=== PATIENT | female | born 1965 | race Caucasian/White ===

== ENCOUNTER 2017-03-08 13:35 | Emergency (ER) | payer MEDICAID ==
[~2017-03-08] VITALS: Ht 162.6 cm; Wt 85.0 kg
[~2017-03-08 13:35] MED LIST: ACET-2178 PO; ALBU18HF2 IH; ALBUL; HYDR25TA PO; LISI-186 PO; METF500T4 PO; PROAIR
[2017-03-08] MEDS ORDERED: IPRATROPIUM BROMIDE (0.02%) 0.5MG/2.5ML NEB HHN STA (14:30)
[2017-03-08] MEDS ORDERED: ALBUTEROL (0.083%) 2.5MG/3ML NEB HHN STA (14:30)
[2017-03-08] MEDS ORDERED: PREDNISONE 20MG TABLET PO STA (14:30)
[2017-03-08] MEDS ORDERED: METHYLPREDNISOLONE SOD SUCC 125 MG/2 ML VIAL IV STA (14:39)
[2017-03-08 17:23] VITALS: BP 110/61
== END 2017-03-08 17:40 | disposition home or self-care (01) ==
LOC: ER 14:52
DX: J45.901 Unspecified asthma with (acute) exacerbation (principal); I25.10 Atherosclerotic heart disease of native coronary artery without angina pectoris; I10 Essential (primary) hypertension; E11.9 Type 2 diabetes mellitus without complications; I25.2 Old myocardial infarction
CPT/HCPCS: 71010; 94644; 96374; 99285; J2930; J7611; Z7610; 94640

== ENCOUNTER 2024-05-27 09:48 | Emergency (ER) | payer MEDICAID ==
[~2024-05-27] VITALS: Ht 162.6 cm; Wt 80.0 kg
[~2024-05-27 09:48] MED LIST changes: -ACET-2178 PO; +ALBU2SYR23; -ALBUL; +METF-414 PO; -METF500T4 PO; +TOPUD PO
[2024-05-27 10:25] LABS: BASOPHILS % 1.3 % (0.0-2.0); EOSINOPHILS % 8.6 % (0.0-5.0); HEMATOCRIT. 41.9 % (36.0-48.0); HEMOGLOBIN. 13.9 g/dL (12.0-16.0); LYMPHOCYTES % 20.7 % (20.0-50.0); MEAN CORPUSCULAR HEMOGLOBIN 29.4 pg (28.0-32.0); MEAN CORPUSCULAR HGB CONC 33.3 g/dL (31.0-37.0); MEAN CORPUSCULAR VOLUME 88.2 fL (81.0-99.0); MEAN PLATELET VOLUME 8.5 fl (7.4-10.4); NEUTROPHILS % 60.4 % (40.0-76.0); PLATELET 318 x1000/uL (130-400); RED BLOOD CELL COUNT 4.75 mill/uL (4.2-5.4); RED CELL DISTRIBUTION WIDTH 15.4 % (11.6-14.6); WHITE BLOOD COUNT 8.8 x1000/uL (4.5-11.0)
[2024-05-27 10:29] LABS: CHLORIDE 105 mEq/L (98-107); POTASSIUM 3.9 mEq/L (3.5-5.1); SODIUM 139 mEq/L (136-145)
[2024-05-27 10:30] LABS: CARBON DIOXIDE 26 mEq/L (21-32)
[2024-05-27 10:31] LABS: CALCIUM 9.6 mg/dL (8.7-10.4)
[2024-05-27 10:35] LABS: CREATININE 0.9 mg/dL (0.6-1.0)
[2024-05-27 10:36] LABS: GLUCOSE 265 mg/dL (70-105); TROPONIN I HIGH SENSITIVITY 5 ng/L (3.0-34); UREA NITROGEN BLOOD 11 mg/dL (9-23)
[2024-05-27 11:19] VITALS: PULSE 77; RESP 20; O2SAT 95
[2024-05-27] MEDS: IPRATROPIUM BROMIDE (0.02%) 0.5MG/2.5ML NEB HHN ONE (11:19)
[2024-05-27] MEDS: ALBUTEROL (0.5%) 2.5MG/0.5ML NEB HHN ONE (11:19)
[2024-05-27] MEDS: METHYLPREDNISOLONE SOD SUCC 125MG/2ML (ACT-O-VIAL) IM ONE (11:49)
[2024-05-27] MEDS ORDERED: P20 MT (12:33)
[2024-05-27] MEDS ORDERED: ALBU05 NEB (12:33)
[2024-05-27 12:46] VITALS: BP 140/84; PULSE 75; RESP 20; TEMP 36.66960; O2SAT 95
== END 2024-05-27 12:53 | disposition home or self-care (01) ==
LOC: ER 09:48
DX: J45.901 Unspecified asthma with (acute) exacerbation (principal); F12.10 Cannabis abuse, uncomplicated; I25.2 Old myocardial infarction; I10 Essential (primary) hypertension; E11.9 Type 2 diabetes mellitus without complications; Z79.899 Other long term (current) drug therapy; Z98.890 Other specified postprocedural states
CPT/HCPCS: 80048; 83880; 85025; 84484; 36415; 71045; 93005; 94644; 96372; 99285; J2919; Z7610; 94640

== ENCOUNTER 2024-07-22 10:00 | Emergency (ER) | payer MEDICAID ==
[~2024-07-22] VITALS: Ht 160 cm; Wt 80.7 kg
[~2024-07-22 10:00] MED LIST changes: +ALBU05 NEB; +P20 MT
[2024-07-22 10:06] VITALS: O2SAT 99
[2024-07-22 10:15] VITALS: BP 180/138; TEMP 98; O2SAT 97
[2024-07-22 10:28] VITALS: PULSE 88; RESP 18
[2024-07-22] MEDS: ALBUTEROL (0.083%) 2.5MG/3ML NEB HHN STA (10:28)
[2024-07-22] MEDS: IPRATROPIUM BROMIDE (0.02%) 0.5MG/2.5ML NEB HHN STA (10:28)
[2024-07-22] MEDS ORDERED: IPRATROPIUM/ALBUTEROL 0.5-3(2.5)MG/3ML NEB ONE (10:54)
[2024-07-22 10:55] VITALS: PULSE 78; RESP 18
[2024-07-22] MEDS: PREDNISONE 20MG TABLET PO STA (10:57)
[2024-07-22 10:58] VITALS: PULSE 78; RESP 18
[2024-07-22 11:27] VITALS: PULSE 80; RESP 20
[2024-07-22] MEDS: IPRATROPIUM/ALBUTEROL 0.5-3(2.5)MG/3ML NEB HHN ONE (11:27)
[2024-07-22 12:06] LABS: CHLORIDE 106 mEq/L (98-107); POTASSIUM 3.8 mEq/L (3.5-5.1); SODIUM 140 mEq/L (136-145)
[2024-07-22 12:07] LABS: CARBON DIOXIDE 27 mEq/L (21-32)
[2024-07-22 12:10] LABS: BASOPHILS % 1.3 % (0.0-2.0); EOSINOPHILS % 8.7 % (0.0-5.0); HEMATOCRIT. 44.2 % (36.0-48.0); HEMOGLOBIN. 14.2 g/dL (12.0-16.0); MEAN CORPUSCULAR HEMOGLOBIN 28.1 pg (28.0-32.0); MEAN CORPUSCULAR HGB CONC 32.1 g/dL (31.0-37.0); MEAN CORPUSCULAR VOLUME 87.6 fL (81.0-99.0); MEAN PLATELET VOLUME 9.4 fl (7.4-10.4); MONOCYTES % 9.2 % (2.0-8.0); NEUTROPHILS % 53.8 % (40.0-76.0); PLATELET 309 x1000/uL (130-400); RED BLOOD CELL COUNT 5.04 mill/uL (4.2-5.4); RED CELL DISTRIBUTION WIDTH 14.3 % (11.6-14.6); WHITE BLOOD COUNT 10.8 x1000/uL (4.5-11.0)
[2024-07-22 12:12] LABS: CREATININE 0.9 mg/dL (0.6-1.0); INR 0.9; PROTHROMBIN TIME 10.5 sec (9.6-11.0)
[2024-07-22 12:13] LABS: GLUCOSE 228 mg/dL (70-105); UREA NITROGEN BLOOD 13 mg/dL (9-23)
[2024-07-22 12:14] LABS: ALANINE AMINOTRANSFERASE 18 IU/L (10-49); ALBUMIN 4.5 g/dL (3.2-4.8); ASPARTATE AMINOTRANSFERASE 17 IU/L (<34); TROPONIN I HIGH SENSITIVITY 5 ng/L (3.0-34)
[2024-07-22 12:15] LABS: BILIRUBIN DIRECT 0.1 mg/dL (<=3.0); BILIRUBIN TOTAL 0.5 mg/dL (0.1-1.0); PROTEIN TOTAL 7.7 g/dL (6.0-8.3)
== END 2024-07-22 13:01 | disposition left against medical advice (07) ==
LOC: ER 10:00
DX: J45.901 Unspecified asthma with (acute) exacerbation (principal); F12.10 Cannabis abuse, uncomplicated; J44.1 Chronic obstructive pulmonary disease with (acute) exacerbation; E11.9 Type 2 diabetes mellitus without complications; I25.2 Old myocardial infarction; I10 Essential (primary) hypertension; Z79.899 Other long term (current) drug therapy
CPT/HCPCS: 80076; 80048; 83690; 85025; 85610; 84484; 36415; 71045; 94640; 93005; 99285; J7512; Z7610 ×2

== ENCOUNTER 2024-08-03 09:15 | Emergency (ER) | payer MEDICAID ==
[~2024-08-03] VITALS: Ht 160 cm; Wt 82.0 kg
[2024-08-03 09:22] VITALS: O2SAT 97
[2024-08-03 09:26] VITALS: BP 184/115; TEMP 97.9; O2SAT 96
[2024-08-03] MEDS ORDERED: METH4TAB95 MT (09:46)
[2024-08-03] MEDS ORDERED: BECL10.6 INH (09:46)
[2024-08-03] MEDS ORDERED: ALBU2.5V13 NEB (09:46)
[2024-08-03 09:54] VITALS: PULSE 93; RESP 22
[2024-08-03] MEDS: IPRATROPIUM BROMIDE (0.02%) 0.5MG/2.5ML NEB HHN STA (09:54)
[2024-08-03] MEDS: ALBUTEROL (0.083%) 2.5MG/3ML NEB HHN STA (09:54)
[2024-08-03] MEDS: DEXAMETHASONE 4MG/ML 1ML VIAL IM ONE (11:16)
== END 2024-08-03 11:20 | disposition home or self-care (01) ==
LOC: ER 09:15
DX: J44.1 Chronic obstructive pulmonary disease with (acute) exacerbation (principal); E11.9 Type 2 diabetes mellitus without complications; E78.00 Pure hypercholesterolemia, unspecified; I10 Essential (primary) hypertension; F12.90 Cannabis use, unspecified, uncomplicated; Z79.899 Other long term (current) drug therapy
CPT/HCPCS: 71045; 94640; 93005; 96372; 99283; J1100; Z7610 ×3